=== PATIENT | female | born 1975 | race American Indian/Alaskan Native ===

== ENCOUNTER 2019-10-10 09:11 | Outpatient (CLI) | payer BC ==
--- NOTE | 2019-10-10 14:03 | Treadmill Report ---
STRESS TEST ORDERING PHYSICIAN: Tk Singh MD REASON FOR STUDY: Chest pain. READING PHYSICIAN: Dr. Grimes. The patient exercised on Fredis protocol. The patient's baseline heart rate was 75. Baseline blood pressure 125/79. Peak heart rate was 175, which is 100% maximum predicted heart rate. Peak blood pressure 179/90. Baseline EKG, sinus rhythm, no ST-T abnormalities. The patient had no diagnostic EKG changes suggestive of ischemia, upsloping STs were noted that quickly resolved in recovery. No arrhythmias noted. No chest pain. SUMMARY: 1. Negative treadmill EKG. 2. Good exercise capacity 9 minutes 30 seconds on Fredis protocol. 3. No exaggerated BP response to exercise. 4. There are no diagnostic EKG changes or arrhythmia suggestive of ischemia. No chest pain ____ secondary to shortness of breath. JOB# [id number] JESSICA/TAI
== END 2019-10-10 09:12 | disposition home or self-care (01) ==
LOC: CARD 09:11 → EDBD 09:30
PROVIDERS: ATTEND Internal Medicine Cardiovascular Disease
DX: R07.89 Other chest pain (principal); K21.9 Gastro-esophageal reflux disease without esophagitis; Z82.49 Family history of ischemic heart disease and other diseases of the circulatory system
CPT/HCPCS: 93017